=== PATIENT | female | born 1970 | race Caucasian/White ===

== ENCOUNTER 2021-06-12 15:54 | Emergency (ER) | payer OTHER ==
[~2021-06-12] VITALS: Ht 154.9 cm; Wt 59.1 kg
[2021-06-12 16:21] VITALS: BP 100/63
[2021-06-12] MEDS ORDERED: MethylPREDNISolone SOD SUCC 125 MG/2 ML VIAL IM ONE (16:30)
[2021-06-12] MEDS ORDERED: DiphenhydrAMINE HCL 50 MG/ML VIAL IM ONE (16:30)
== END 2021-06-12 18:25 | disposition home or self-care (01) ==
LOC: EMS 16:29
DX: R21 Rash and other nonspecific skin eruption (principal)
CPT/HCPCS: 96372; 99284; J1200; J2930

== ENCOUNTER 2021-06-13 20:22 | Emergency (ER) | payer OTHER ==
[2021-06-13] MEDS ORDERED: MethylPREDNISolone SOD SUCC 125 MG/2 ML VIAL IM ONE (20:45)
[2021-06-13] MEDS ORDERED: DiphenhydrAMINE HCL 50 MG/ML VIAL IM ONE (20:45)
[2021-06-13] MEDS ORDERED: FAMOTIDINE 20 MG TABLET PO ONE (20:45)
== END 2021-06-13 22:57 | disposition home or self-care (01) ==
LOC: EMS 20:22
DX: L50.9 Urticaria, unspecified (principal)
CPT/HCPCS: 96372; 99284; J1200; J2930

== ENCOUNTER 2022-09-18 19:29 | Emergency (ER) | payer OTHER ==
[~2022-09-18] VITALS: Ht 162.6 cm; Wt 45.5 kg
[2022-09-18 20:19] VITALS: BP 115/75
[2022-09-18] MEDS: DiphenhydrAMINE HCL 25 MG CAPSULE PO ONE ×2 (20:24→20:39)
[2022-09-18] MEDS: PredniSONE 20 MG TABLET PO ONE ×2 (20:25→20:56)
[2022-09-18] MEDS ORDERED: DiphenhydrAMINE HCL 50 MG/ML VIAL IM ONE (20:45)
[2022-09-18] MEDS ORDERED: PRED-554 PO (21:33)
[2022-09-18] MEDS ORDERED: DIPH25CA85 PO (21:34)
[2022-09-19] MEDS ORDERED: PRED-554 PO (13:36)
[2022-09-19] MEDS ORDERED: DIPH25CA85 PO (13:36)
== END 2022-09-18 21:46 | disposition home or self-care (01) ==
LOC: EMS 19:37
DX: T78.40XA Allergy, unspecified, initial encounter (principal); Z88.0 Allergy status to penicillin; X58.XXXA Exposure to other specified factors, initial encounter
CPT/HCPCS: 99283; 96372; J1200; J7512

== ENCOUNTER 2022-09-19 12:53 | Emergency (ER) | payer OTHER ==
[~2022-09-19] VITALS: Ht 152.4 cm; Wt 50.0 kg
[~2022-09-19 12:53] MED LIST: DIPH25CA85 PO; PRED-554 PO
[2022-09-19] MEDS ORDERED: DiphenhydrAMINE HCL 50 MG/ML VIAL IM ONE (13:15)
[2022-09-19] MEDS ORDERED: PredniSONE 20 MG TABLET PO ONE (13:15)
[2022-09-19] MEDS ORDERED: DIPH25CA85 PO (13:36)
[2022-09-19] MEDS ORDERED: PRED-554 PO (13:36)
[2022-09-19 13:56] VITALS: BP 105/63
== END 2022-09-19 14:04 | disposition home or self-care (01) ==
LOC: EMS 13:00
DX: T78.40XA Allergy, unspecified, initial encounter (principal); Z88.0 Allergy status to penicillin; Z88.6 Allergy status to analgesic agent; Z88.8 Allergy status to other drugs, medicaments and biological substances; X58.XXXA Exposure to other specified factors, initial encounter
CPT/HCPCS: 99283; 96372; J1200; J7512; 99285